=== PATIENT | male | born 1960 | race Caucasian/White ===

== ENCOUNTER 2019-08-31 05:51 | Day surgery (SDC) | payer OTHER ==
[2019-08-29 14:09] VITALS: BMI 34.8
[2019-08-31] MEDS ORDERED: MIDAZOLAM HCL 2 MG/2 ML SINGLE DOSE VIAL ONE ×2 (07:07→07:18)
[2019-08-31] MEDS ORDERED: ROPIVACAINE HCL 0.5% 30ML VIAL ONE (07:07)
[2019-08-31] MEDS ORDERED: EPINEPHrine 1:1,000 1 MG/1 ML - 30ML VIAL (INJECTION) ONE (07:14)
[2019-08-31] MEDS ORDERED: ceFAZolin SODIUM 1 GM VIAL ONE (07:17)
[2019-08-31] MEDS ORDERED: LIDOCAINE HCL/PF 2% SDV 5ML VIAL ONE (07:17)
[2019-08-31] MEDS ORDERED: LIDOCAINE HCL 2% JELLY (5 ML/TUBE) ONE (07:17)
[2019-08-31] MEDS ORDERED: DEXAMETHASONE SOD PHOSPHATE 4 MG/1 ML VIAL ONE (07:17)
[2019-08-31] MEDS ORDERED: ONDANSETRON 4 MG/2 ML VIAL ONE (07:17)
[2019-08-31] MEDS ORDERED: PROPOFOL 20 ML ONE ×6 (07:17→09:45)
[2019-08-31] MEDS ORDERED: SUCCINYLCHOLINE CHLORIDE 200 MG/10 ML SYRINGE ONE (07:18)
[2019-08-31] MEDS ORDERED: EPHEDRINE SULFATE/0.9% NACL/PF 50 MG/10 ML SYRINGE NR ONE (07:18)
--- NOTE | 2019-08-31 07:32 | OP ---
Operative Note - Note: Operative Date: 08/31/19 Pre-Operative Diagnosis: Right shoudler rotator cuff tear Operation: Right rotator cuff repair ??? Post-Operative Diagnosis: Same as Pre-op Surgeon: Mitch Perea Data Transcriber: Berna Rodríguez Anesthesiologist/INK BLENDER: Darius Lazaro Anesthesia: General (LMA) Operative Report Dictated: Yes
[2019-08-31] MEDS ORDERED: ONDANSETRON 4 MG/2 ML VIAL IVPUSH PRN (10:10)
[2019-08-31] MEDS ORDERED: oxyCODONE HCL 5 MG TABLET PO PRN ×2 (10:10)
[2019-08-31] MEDS ORDERED: PROMETHAZINE HCL 25 MG/1 ML VIAL IVPUSH PRN (10:10)
--- NOTE | 2019-08-31 11:05 | OP ---
DATE OF OPERATION: 08/31/2019 PREOPERATIVE DIAGNOSIS: Right shoulder partial-thickness rotator cuff tear. POSTOPERATIVE DIAGNOSIS: Right shoulder full-thickness rotator cuff tear, degenerative labral tearing, subacromial impingement. PROCEDURE: Right shoulder arthroscopy with rotator cuff repair, subacromial decompression and debridement of the labrum and joint synovitis. ANESTHESIA: Regional. POSTOPERATIVE CONDITION: Stable. COMPLICATIONS: None. IMPLANTS: [employer] Q-FIX x2, MULTIFIX x2. INDICATIONS: This is a pleasant 59-year-old gentleman who was suffering from shoulder pain. He was failing to improve with conservative means. MRI demonstrated partial-thickness rotator cuff tear. Treatment options including nonoperative versus operative management were reviewed. Operative risks were reviewed in detail including bleeding, infection, neurovascular injury, need for further surgery, postoperative pain and stiffness, failure to heal or re-tear of the cuff. We discussed medical risks such as heart attack, stroke, DVT, PE, or . I addressed the use of perioperative antibiotic and DVT prophylaxis. I addressed the use of a sling postoperatively as well as the postoperative rehabilitation protocol. I addressed all the patient's questions and concerns. He voiced understanding and he elected to proceed. DESCRIPTION OF PROCEDURE: Patient was brought to the operating room where he was placed onto the beach chair table. Preoperatively, he had been given a regional anesthetic. He was placed into a comfortable position while still awake, maintaining care to avoid any pressure on the bony prominences and maintain neutral cervical spine positioning. The legs were placed in a slightly flexed position. The table was reclined back and maintained in this position during the procedure. The right upper extremity was then prepped and draped in the usual sterile fashion. A preoperative dose of antibiotics was given, and the usual timeout procedure was performed. The arm was examined, demonstrating full range of motion and good stability. The right upper extremity was marked. Posterior viewing portal was now established. The arthroscope was passed into the glenohumeral joint. Examination of the glenohumeral joint demonstrated some moderate partial-thickness articular wear on the inferior surface of the glenoid. There was no significant humeral wear. There was diffuse fraying and tearing of the anterior labrum. There was diffuse synovitis noted throughout the joint. The subscapularis was visualized and seen to be intact. The arthroscope was passed to the biceps. The biceps was examined, demonstrating no significant pathology. Anterior portal was now established under spinal needle localization. The biceps was pulled into the joint and found to be in good condition. The supraspinatus was noted to be fully torn with a delaminated tear extending up to the junction with the infraspinatus. It was slightly retracted by about 1-2 cm. The arthroscope was now passed once more posteriorly. The more posterior portion of the infraspinatus was intact, albeit with underlying synovitis. The arthroscope was brought into the axillary pouch where no findings were found. The posterior labrum appeared unremarkable as well. At this point, the synovitis was debrided utilizing a shaver and electrocautery. The labrum was debrided utilizing a shaver. The surface of the glenoid was debrided to allow for healing, though no anchors were placed given the lack of instability of . The arthroscope was now passed into the subacromial space. Here, fraying was noted on the undersurface of the acromion consistent with impingement morphology. Bursitis was noted as well. Subacromial decompression was now completed utilizing the RF device as well as the shaver. The greater tuberosity was now debrided down to bleeding bone utilizing the shaver. The medial row was now placed by doing stab incisions and drilling 2 double-loaded Q-FIX anchors. Initially, the anterior leaflet of the supraspinatus was passed with the anterior anchor utilizing a FiberLink suture to pass the sutures once and tying one of the pairs. This secured the lower leaflet down into place. A suture was then sequentially passed through the more superior leaflet to secure this as well. The posterior sutures were now passed as well. One pair of the posterior sutures was tied as well to secure the medial row. Suture was then passed into a crossing pattern. Two lateral were then loaded with the sutures. They were self-punching anchors, and they were inserted, securing the rotator cuff along the width of the footprint. Shoulder was now passed through a range of motion and found to be stable. The subacromial space was once again visualized to ensure no further compression was there. The portals at this point were sutured using 3-0 nylon. Sterile dressings were placed. The patient was transferred to recovery room in stable condition. PATRICIA MATTA M.D. [id number]
[2019-08-31 11:25] VITALS: TEMP 97.6
[2019-08-31 12:18] VITALS: BP 115/73; PULSE 66
== END 2019-08-31 12:10 | disposition home or self-care (01) ==
LOC: FASU 05:51
PROVIDERS: ATTEND Orthopaedic Surgery Sports Medicine
PROC: 0RBJ4ZZ Excision of Right Shoulder Joint, Percutaneous Endoscopic Approach (ICD-10-PCS; 2019-08-31)
PROC: 0LQ14ZZ Repair Right Shoulder Tendon, Percutaneous Endoscopic Approach (ICD-10-PCS; principal; 2019-08-31 08:12)
PROC: 0RNJ4ZZ Release Right Shoulder Joint, Percutaneous Endoscopic Approach (ICD-10-PCS; 2019-08-31 08:12)
DX: M75.121 Complete rotator cuff tear or rupture of right shoulder, not specified as traumatic (principal); M75.41 Impingement syndrome of right shoulder; M24.111 Other articular cartilage disorders, right shoulder; M65.811 Other synovitis and tenosynovitis, right shoulder
CPT/HCPCS: 94760